=== PATIENT | male | born 1955 | race Caucasian/White ===

== ENCOUNTER 2018-05-14 10:01 | Emergency (ER) | payer OTHER ==
[2018-05-14] MEDS ORDERED: IBUPROFEN 400 MG TABLET (FP) PO ONE ×2 (10:10→10:13)
--- NOTE | 2018-05-14 10:18 | PDOC ---
History of Present Illness - General Chief Complaint: Pain Stated Complaint: LEFT CALF PAIN Time Seen by Provider: 05/14/18 10:08 History Source: Patient Exam Limitations: No Limitations - History of Present Illness Initial Comments: 05/14/18 10:16 62yoM hx of HL and HTN presents w/ L calf pain and swelling progressive x yesterday. Pt states he thinks he may have pulled a muscle to medial aspect of calf when stepping down from his truck yesterday. + limping on evaluation. No DVT risk factors on ROS. Past History - Travel Traveled outside of the country in the last 30 days: No Close contact w/someone who was outside of country & ill: No - Past Medical History Allergies/Adverse Reactions: Allergies Allergy/AdvReac Type Severity Reaction Status Date / Time No Known Allergies Allergy Verified 05/14/18 10:03 Home Medications: Ambulatory Orders Amlodipine Besylate 10 mg PO DAILY 05/14/18 Fenofibrate,Micronized [Fenofibrate] 134 mg PO DAILY 05/14/18 Naproxen Sodium [Aleve] 220 mg PO ONCE 05/14/18 Simvastatin 20 mg PO DAILY 05/14/18 COPD: No HTN: Yes Hypercholesterolemia: Yes - Surgical History Cholecystectomy: Yes - Suicide/Smoking/Psychosocial Hx Smoking History: Never smoked Hx Alcohol Use: Yes (WEEKENDS) Drug/Substance Use Hx: No Substance Use Type: None Review of Systems - Review of Systems All Other Systems: Reviewed and Negative (As per HPI.) *Physical Exam - Vital Signs Last Vital Signs Temp Pulse Resp BP Pulse Ox 98.5 F 88 15 146/90 100 05/14/18 10:02 05/14/18 10:02 05/14/18 10:02 05/14/18 10:02 05/14/18 10:02 - Physical Exam Comments: 05/14/18 10:18 NAD, well appearing RRR CTABL + slight swelling to L calf/ankle achilles tendons intact b/l on arboleda's test no palpable cords no erythema/warmth/ecchymosis, + slight focal tenderness along medial aspect of calf. ED Treatment Course - RADIOLOGY Radiology Studies Ordered: Category Date Time Status DUPLEX VASCUL US-1 LEG [US] Stat Ultrasound 05/14/18 10:08 Ordered Comments: vasculr duplex negative for DVT. Medical Decision Making - Medical Decision Making 05/14/18 10:19 62yoM w/ L cafl injury, no e/o tendon rupture, r/o DVT. - venous duplex - pain control - dispo per results. *DC/Admit/Observation/Transfer Diagnosis at time of Disposition: Muscle strain - Discharge Dispostion Disposition: HOME Condition at time of disposition: Good - Referrals Referrals: Jm Stokes [Primary Care Provider] - - Patient Instructions Printed Discharge Instructions: DI for Muscle Strain Additional Instructions: You have a pulled muscle in your leg. NO evidence of a blood clot or torn tendon in your leg. For pain: Aleve 2 tabs every 12 hours for 3 days and then reduce to as needed. Tylenol 2 tabs every 4-6 hours as needed for pain not controlled by Aleve. Rest ICE to injury elevate KEVIN wrap around calf for symptommatic relief. May be removed as desired. Walking as tolerated. Listen to your body, if you are doing something that is causing increased pain, stop. - Post Discharge Activity Forms/Work/School Notes: Back to Work
[2018-05-14 10:28] VITALS: BP 146/90; PULSE 88; TEMP 98.5; BMI 27.6
== END 2018-05-14 11:56 | disposition home or self-care (01) ==
LOC: FER 10:01
DX: S86.912A Strain of unspecified muscle(s) and tendon(s) at lower leg level, left leg, initial encounter (principal); X58.XXXA Exposure to other specified factors, initial encounter; Y93.89 Activity, other specified; Y92.9 Unspecified place or not applicable; I10 Essential (primary) hypertension; E78.00 Pure hypercholesterolemia, unspecified
CPT/HCPCS: 93971-TC; 99282-25